=== PATIENT | female | born 1945 | race Caucasian/White ===

== ENCOUNTER 2018-05-17 07:30 | Inpatient (IN) | payer OTHER, MEDICARE ==
[2018-05-15 14:30] VITALS: BP 131/75
[~2018-05-17] VITALS: Ht 160 cm; Wt 78.2 kg
[~2018-05-17 07:30] MED LIST: AMLO5TAB7 PO; ASCO100019 PO; ASPI-496 PO; BACITRACIN 50,000 UNIT ONE; BUPIVACAINE/PF 0.5% ONE; CALC-126 PO; EPINEPHRINE 1 MG/ML, 1ML ONE; ESTR10TA4 PO; LEVO100T5 PO; MULT-709 PO; SULF1TAB24 PO
[2018-05-17] MEDS ORDERED: LACTATED RINGERS 1,000 ML IV SCH (09:05)
[2018-05-17] MEDS ORDERED: LIDOCAINE-MPF 1%, 2ML INFIL ONE (09:30)
[2018-05-17] MEDS ORDERED: ACETAMINOPHEN 500 MG TABLET PO ONE (09:30)
[2018-05-17] MEDS ORDERED: ONDANSETRON ODT 8 MG PO ONE (09:30)
[2018-05-17] MEDS ORDERED: GABAPENTIN 300 MG CAPSULE PO ONE (09:30)
[2018-05-17] MEDS ORDERED: MIDAZOLAM 1 MG/ML, 2ML ONE (09:53)
[2018-05-17] MEDS ORDERED: FENTANYL PF 250 MCG/5ML ONE (09:53)
[2018-05-17] MEDS ORDERED: ROCURONIUM 10 MG/ML,10ML ONE (10:28)
[2018-05-17] MEDS ORDERED: EPHEDRINE 50 MG/ML, 1ML ONE (10:28)
[2018-05-17] MEDS ORDERED: PROPOFOL 10 MG/ML, 50ML ONE (10:28)
[2018-05-17] MEDS ORDERED: CEFAZOLIN 1,000 MG ONE (11:39)
[2018-05-17] MEDS ORDERED: PROPOFOL 10 MG/ML, 20ML ONE (11:39)
[2018-05-17] MEDS ORDERED: LIDOCAINE-MPF 2% ,5ML ONE ×2 (11:39)
[2018-05-17] MEDS ORDERED: SUCCINYLCHOLINE 20 MG/ML, 10ML ONE (11:39)
[2018-05-17] MEDS ORDERED: DEXAMETHASONE 4 MG/ML, 1ML ONE (11:39)
[2018-05-17] MEDS ORDERED: OXYcodone 5 MG/5 ML ORAL.SOL UDC PO PRN (12:00)
[2018-05-17] MEDS ORDERED: SCOPOLAMINE PATCH, 1.5MG PATCH.TD72 TD PRN (12:00)
[2018-05-17] MEDS ORDERED: MIDAZOLAM 1 MG/ML, 2ML IV PRN (12:00)
[2018-05-17] MEDS ORDERED: MEPERIDINE/PF 25MG/0.5ML IVPush PRN (12:00)
[2018-05-17] MEDS ORDERED: HYDROmorphone 1 MG/ML, 1ML IV PRN (12:00)
[2018-05-17] MEDS ORDERED: PROMETHAZINE 25 MG SUPP PR PRN (12:00)
[2018-05-17] MEDS ORDERED: ONDANSETRON 2MG/ML, 2ML IV PRN ×2 (12:00→16:00)
[2018-05-17] MEDS ORDERED: ALBUTEROL/IPRATROPIUM 2.5MG/0.5MG, 3 ML NPPB PRN (12:00)
[2018-05-17] MEDS ORDERED: LABETALOL 5MG/ML, 20ML IV PRN (12:00)
[2018-05-17] MEDS ORDERED: FENTANYL PF 100 MCG/2ML IV PRN (12:00)
[2018-05-17] MEDS ORDERED: hydrALAzine 20 MG/ML, 1ML IV PRN (12:00)
[2018-05-17] MEDS ORDERED: DIAZEPAM 5 MG/ML, 2ML IVPush PRN (12:00)
[2018-05-17] MEDS ORDERED: METHOCARBAMOL 1,000 MG in DEXTROSE 5% 100 ML IV ONE ×2 (13:00→17:00)
[2018-05-17] MEDS ORDERED: OXYcodone 5 MG/5 ML ORAL.SOL UDC ONE (13:34)
[2018-05-17] MEDS ORDERED: PROMETHAZINE 25 MG/ML, 1ML IM PRN (16:00)
[2018-05-17] MEDS ORDERED: MAGNESIUM HYDROXIDE 8%, 30ML UDC PO PRN (16:00)
[2018-05-17] MEDS ORDERED: morphine SULFATE 10 MG/ML, 1ML IV PRN (16:00)
[2018-05-17] MEDS ORDERED: DIPHENHYDRAMINE 50 MG/ML, 1ML IM PRN (16:00)
[2018-05-17] MEDS ORDERED: BISACODYL 10 MG SUPP PR PRN (16:00)
[2018-05-17] MEDS ORDERED: DIPHENHYDRAMINE 50 MG/ML, 1ML IVPush PRN (16:00)
[2018-05-17] MEDS ORDERED: OXYcodone/APAP 5/325MG TABLET PO PRN (16:00)
[2018-05-17] MEDS ORDERED: DIPHENHYDRAMINE 50 MG CAPSULE PO PRN (16:00)
[2018-05-17] MEDS ORDERED: CEFAZOLIN 2,000 MG in SODIUM CHLORIDE 0.9% 50 ML IVPB SCH (18:30)
[2018-05-17] MEDS: CEFAZOLIN 2,000 MG in SODIUM CHLORIDE 0.9% 50 ML IVPB SCH (19:07)
[2018-05-17 19:39] VITALS: BP 116/70
[2018-05-17] MEDS: HYDROcodone/APAP 10/325 MG TABLET PO PRN (20:59)
[2018-05-17] MEDS: NS + 20MEQ KCL 1,000 ML IV SCH (22:46)
[2018-05-17 23:48] VITALS: BP 96/72
[2018-05-18] MEDS: HYDROcodone/APAP 10/325 MG TABLET PO PRN ×3 (01:25→16:25)
[2018-05-18] MEDS: METHOCARBAMOL 750 MG in DEXTROSE 5% 100 ML IV SCH ×3 (01:25→17:00)
[2018-05-18] MEDS: CEFAZOLIN 2,000 MG in SODIUM CHLORIDE 0.9% 50 ML IVPB SCH (02:39)
[2018-05-18 03:50] VITALS: BP 116/75
[2018-05-18] MEDS ORDERED: LEVOTHYROXINE 100 MCG TABLET PO SCH (06:00)
[2018-05-18 08:48] VITALS: BP 123/71
[2018-05-18] MEDS ORDERED: ASCORBIC ACID 500 MG TABLET PO SCH (09:00)
[2018-05-18] MEDS ORDERED: SENNA/DOCUSATE TABLET PO SCH (09:00)
[2018-05-18] MEDS ORDERED: AMLODIPINE 5 MG TABLET PO SCH (09:00)
[2018-05-18] MEDS ORDERED: HYDR-3240 PO (10:10)
[2018-05-18] MEDS ORDERED: DOCU-131 PO (10:11)
[2018-05-18] MEDS ORDERED: CYCL5TAB PO (10:11)
[2018-05-18] MEDS: NS + 20MEQ KCL 1,000 ML IV SCH (17:00)
[2018-05-19] MEDS ORDERED: METHOCARBAMOL 750 MG TABLET PO SCH (23:00)
== END 2018-05-18 18:28 | disposition home or self-care (01) | DRG 472 ==
LOC: ORIP 08:01 → 4NOR 14:10
PROVIDERS: ADMIT Neurological Surgery; ATTEND Neurological Surgery
PROC: 0RB30ZZ Excision of Cervical Vertebral Disc, Open Approach (ICD-10-PCS; 2018-05-17)
PROC: 4A11X4G Monitoring of Peripheral Nervous Electrical Activity, Intraoperative, External Approach (ICD-10-PCS; 2018-05-17)
PROC: 0RG20A0 Fusion of 2 or more Cervical Vertebral Joints with Interbody Fusion Device, Anterior Approach, Anterior Column, Open Approach (ICD-10-PCS; principal; 2018-05-17 10:00)
DX: M48.02 Spinal stenosis, cervical region (principal); M50.021 Cervical disc disorder at C4-C5 level with myelopathy; M54.12 Radiculopathy, cervical region; M25.78 Osteophyte, vertebrae; I10 Essential (primary) hypertension; E03.9 Hypothyroidism, unspecified; Z88.8 Allergy status to other drugs, medicaments and biological substances; Z91.048 Other nonmedicinal substance allergy status; Z86.14 Personal history of Methicillin resistant Staphylococcus aureus infection
CPT/HCPCS: 72040; C1713; C9359; G0378; J0171; J0690; J1100; J2250; J2704; J3010; J3480; J3490; Q0162; J0330; J2800; J7120